=== PATIENT | male | born 1960 | race Caucasian/White ===

== ENCOUNTER 2017-09-05 18:53 | Emergency (ER) | payer OTHER ==
[2017-09-05] MEDS ORDERED: cloNIDine HCL 0.2 MG TAB PO STA (19:24)
--- NOTE | 2017-09-05 19:25 | ED ---
ENT HPI - General Chief complaint: ENT Stated complaint: Foreign body in ear Time Seen by Provider: 09/05/17 19:10 Source: patient, RN notes reviewed Mode of arrival: ambulatory Limitations: no limitations - History of Present Illness Initial comments: This is a 57-year-old male who presents to the emergency department with chief complaint of foreign body in right ear. Patient states that this morning he broke the tip of a Q-tip off in his right ear. Patient states that prior to arrival he presented to an urgent care in [place] and they were unable to remove it. Patient states that he is having some mild pain. On presentation he has an elevated blood pressure. Patient states that he has hypertension and takes lisinopril but that his blood pressure is normally not this high. Denies any symptoms. Denies fever, chills, chest pain, shortness of breath, abdominal pain, nausea or vomiting, constipation or diarrhea, dysuria or hematuria, numbness or tingling, headache or vision changes. - Related Data Allergies Allergy/AdvReac Type Severity Reaction Status Date / Time No Known Allergies Allergy Verified 09/05/17 19:07 Review of Systems ROS Statement: Those systems with pertinent positive or pertinent negative responses have been documented in the HPI. ROS Other: All systems not noted in ROS Statement are negative. Past Medical History Past Medical History: Hypertension History of Any Multi-Drug Resistant Organisms: None Reported Past Surgical History: Back Surgery Past Psychological History: No Psychological Hx Reported Smoking Status: Never smoker Past Alcohol Use History: None Reported Past Drug Use History: None Reported General Exam - General Exam Comments Initial Comments: General: Awake and alert, well-developed; in no apparent distress. HEENT: Head atraumatic, normocephalic. Pupils are equal, round and reactive to light. Extraocular movements intact. Oropharynx moist without erythema or exudate. White foreign body noted in right ear. Upon removal, tympanic membrane is intact and appears normal. No trauma to the external count. Neck: Supple. Normal ROM. Cardiovascular: Regular rate and rhythm. No murmurs, rubs or gallops. Chest symmetrical. Respiratory: Lungs clear to auscultation bilaterally. No wheezes, rales or rhonchi. Normal respiratory effort with no use of accessory muscles. Skin: [place], warm and dry without rashes or lesions. Neurological: Alert and oriented x3. CN II-XII grossly intact. Speech is fluent and answers are appropriate. No focal neuro deficits. Psychiatric: Normal mood and affect. No overt signs of depression or anxiety noted. Limitations: no limitations Course Vital Signs 09/05/17 09/05/17 09/05/17 19:04 19:24 19:48 Temperature 97.8 F Pulse Rate 74 76 Respiratory 16 16 Rate Blood Pressure 221/98 225/112 216/119 O2 Sat by Pulse 98 Oximetry 09/05/17 20:19 Temperature Pulse Rate 64 Respiratory 16 Rate Blood Pressure 181/94 O2 Sat by Pulse Oximetry Procedures - Foreign Body Removal Ear Location: ear canal (R) Foreign Body Suspected: other (qtip) Foreign Body Removed: yes Foreign Body Removal Technique: forceps Tympanic Membrane Intact: Yes Patient Tolerated Procedure: well, no complications Complications: none Medical Decision Making - Medical Decision Making This is a 57-year-old male who presents to the emergency department with chief complaint of foreign body in right ear. Q-tip was removed with forceps on first attempt. TM is intact and there is no trauma to the external canal. On presentation to the emergency department, patient's blood pressure is 212/98. Upon recheck of blood pressure it is 225/112. Given clonidine 0.2 mg. Blood pressure decreased to 181/94 and is stable so patient will be discharged home. Patient is in agreement and voices understanding. All questions were answered. He will follow-up with his primary care provider. Disposition Clinical Impression: Foreign body in ear Disposition: HOME SELF-CARE Condition: Good Instructions: Ear Foreign Body (ED) Additional Instructions: Please follow up with primary care provider within 1-2 days. Return to emergency department if symptoms should worsen or any concerns arise. Referrals: Rohit Carter MD [Primary Care Provider] - 1-2 days Time of Disposition: 19:43
[2017-09-05 23:36] VITALS: BP 181/94; PULSE 64; RESP 16; TEMP 97.8
== END 2017-09-05 20:26 | disposition home or self-care (01) ==
LOC: EC 18:53
DX: T16.1XXA Foreign body in right ear, initial encounter (principal); I10 Essential (primary) hypertension
CPT/HCPCS: 69200; 99282

== ENCOUNTER 2019-02-02 00:29 | Emergency (ER) | payer OTHER ==
--- NOTE | 2019-02-02 00:56 | XR ---
EXAM: XR Right Knee, 3 views CLINICAL HISTORY: ITS.REASON XR Reason: Pain TECHNIQUE: Three views of the right knee. COMPARISON: No relevant prior studies available. FINDINGS: Bones/joints: No acute fracture. No dislocation. Soft tissues: Unremarkable. IMPRESSION: No acute findings.
--- NOTE | 2019-02-02 01:08 | XR ---
EXAM: XR Right Hand Complete, 3 or More Views CLINICAL HISTORY: ITS.REASON XR Reason: Pain TECHNIQUE: Frontal, lateral and oblique views of the right hand. COMPARISON: No relevant prior studies available. FINDINGS: Bones/joints: No acute fracture. No dislocation. Soft tissues: Unremarkable. No radiopaque foreign body. IMPRESSION: No acute findings.
--- NOTE | 2019-02-02 01:08 | XR ---
EXAM: XR Right Wrist Complete, 3 or More Views CLINICAL HISTORY: ITS.REASON XR Reason: Pain TECHNIQUE: Frontal, lateral and oblique views of the right wrist. COMPARISON: No relevant prior studies available. FINDINGS: Bones/joints: No acute fracture. No dislocation. Soft tissues: Unremarkable. No radiopaque foreign body. IMPRESSION: No acute findings.
[2019-02-02] MEDS ORDERED: HYDROcodone/APAP 5-325MG 1 EACH TAB PO STA (01:40)
[2019-02-02] MEDS ORDERED: ONDANSETRON 4 MG ODT STARTER PACK 2 TAB BTL PO STA (01:40)
--- NOTE | 2019-02-02 01:43 | ED ---
General Adult HPI - General Chief complaint: Extremity Injury, Upper Stated complaint: R hand injury Time Seen by Provider: 02/02/19 01:14 Source: patient Limitations: no limitations - History of Present Illness Initial comments: 58-year-old male patient presents to the emergency department today for evaluation of right wrist pain and right knee pain after experiencing a fall. Patient states that he tripped over a cord and fell forward landing on his arm and on the right knee. Patient states he is having significant pain to the wrist. Patient states he was able to ambulate on the knee however did cause him pain as well. Denies any numbness or tingling to the extremities. He denies hitting his head or losing consciousness with this. Denies any neck or back injury. Patient denies any headache, neck pain, back pain, chest pain, shortness of breath, dizziness, weakness, abdominal pain, nausea, vomiting, or difficulties with bowel movements or urination. - Related Data Previous Rx's Medication Instructions Recorded Ibuprofen [Motrin] 600 mg PO Q8HR PRN #30 tab 02/02/19 Allergies Allergy/AdvReac Type Severity Reaction Status Date / Time No Known Allergies Allergy Verified 02/02/19 00:37 Review of Systems ROS Statement: Those systems with pertinent positive or pertinent negative responses have been documented in the HPI. ROS Other: All systems not noted in ROS Statement are negative. Past Medical History Past Medical History: Hypertension History of Any Multi-Drug Resistant Organisms: None Reported Past Surgical History: Back Surgery, Orthopedic Surgery Additional Past Surgical History / Comment(s): left leg FX repair, Past Psychological History: No Psychological Hx Reported Smoking Status: Never smoker Past Alcohol Use History: None Reported Past Drug Use History: None Reported General Exam Limitations: no limitations General appearance: alert, in no apparent distress, other (Physical well- developed, well-nourished adult male patient in no acute distress. Vital signs upon presentation are temperature 99.2F, pulse 91, respirations 18, blood pressure 172/92, pulse ox 96% on room air.) Eye exam: Present: normal appearance, PERRL, EOMI. Absent: scleral icterus, conjunctival injection, periorbital swelling ENT exam: Present: normal exam, normal oropharynx, mucous membranes moist Neck exam: Present: normal inspection, full ROM, other (Nontender, no step-off, no deformity to firm midline palpation of the posterior cervical spine. Full range of motion without pain or limitation.). Absent: tenderness, meningismus, lymphadenopathy Respiratory exam: Present: normal lung sounds bilaterally. Absent: respiratory distress, wheezes, rales, rhonchi, stridor Cardiovascular Exam: Present: regular rate, normal rhythm, normal heart sounds. Absent: systolic murmur, diastolic murmur, rubs, gallop, clicks GI/Abdominal exam: Present: soft, normal bowel sounds. Absent: distended, tenderness, guarding, rebound, rigid Extremities exam: Present: normal inspection, full ROM, tenderness (Skin to the patient exhibits tenderness over the right anterior kneeTenderness over the dorsal, ulnar, and radial aspect of the right wrist. There is anatomical snuffbox tenderness.), normal capillary refill, other (Skin to the right hand and wrist is pink, warm, and dry. Cap refills less than 3 seconds. Radial pulses 2+ and equal bilaterally. Skin to the right lower extremity is pink, warm, and dry. Cap refills less than 3 seconds. Pedal posttibial pulses 2+ and equal bilaterally. There is tenderness over the anterior aspect of the right knee. No laxity or pain noted with valgus or varus maneuvers.). Absent: pedal edema, joint swelling, calf tenderness Back exam: Present: normal inspection, other (Nontender, no step-off, no deformity to firm midline palpation of the thoracic and lumbar vertebrae. Full range of motion without pain or limitation.). Absent: vertebral tenderness Neurological exam: Present: alert, oriented X3, CN II-XII intact Psychiatric exam: Present: normal affect, normal mood Skin exam: Present: warm, dry, intact, normal color. Absent: rash Course Vital Signs 02/02/19 02/02/19 00:34 02:01 Temperature 99.2 F 98.7 F Pulse Rate 91 79 Respiratory 18 16 Rate Blood Pressure 172/92 174/99 O2 Sat by Pulse 96 96 Oximetry Procedures - Orthopedic Splinting/Casting Injury #1 Side: left Upper Extremity Injury Location: short arm, wrist Upper Extremity Immobilizer: thumb spica, Colt wrap Additional Comments: Well-padded with webroll. Neurovascular status intact after splint application. Skin to the fingers is pink, warm, dry. Cap refills less than 3 seconds. Patient denies numbness or tingling to the fingers. Medical Decision Making - Medical Decision Making 58-year-old male patient presented to the emergency department today for evaluation of right wrist and hand pain and right knee pain after experiencing a fall. Physical examination did reveal tenderness over the ulnar and radial aspects of the right wrist with anatomical snuffbox tenderness. Patient said tenderness over the anterior aspect of the right knee. X-rays of the right wrist, hand, and right knee were obtained and showed no acute fractures or dislocations. Patient was splinted in a thumb spica given the anatomical snuffbox tenderness. Neurovascular status intact pre-and post-splint application. We discharged home with prescription for ibuprofen and instructions to rest, ice, elevate the arm. He is instructed to follow-up with chronic specialist for further evaluation. Return parameters were discussed in detail. He verbalizes understanding and agrees with this plan. - Radiology Data Radiology results: report reviewed, image reviewed 3 views of the right wrist are obtained. Report was reviewed in its entirety. Impression by Dr. Pierson shows no acute findings. 3 views of the right hand are obtained. Report was reviewed in its entirety. Impression by Dr. Pierson shows no acute findings. 3 views of the right knee are obtained. Report was reviewed in its entirety. Impression by Dr. Pierson shows no acute findings. Disposition Clinical Impression: Right wrist injury, Contusion of right knee, Right shoulder strain Disposition: HOME SELF-CARE Condition: Good Instructions (If sedation given, give patient instructions): Wrist Injury (ED), Contusion in Adults (ED), Splint Care (ED), Shoulder Sprain (ED) Additional Instructions: Rest, ice, elevate the extremity. Take medications as directed. Follow-up with your primary care physician and chronic specialist for recheck as soon as possible. Return to the emergency department immediately for any new, worsening, or concerning symptoms. Prescriptions: Ibuprofen [Motrin] 600 mg PO Q8HR PRN #30 tab PRN Reason: Pain Is patient prescribed a controlled substance at d/c from ED?: No Referrals: Ranulfo Arellano MD [Medical Doctor] - 1-2 days Time of Disposition: 01:42
[2019-02-02 02:15] VITALS: BP 174/99; PULSE 79; RESP 16; TEMP 98.7
== END 2019-02-02 02:17 | disposition home or self-care (01) ==
LOC: EC 00:29
DX: S46.911A Strain of unspecified muscle, fascia and tendon at shoulder and upper arm level, right arm, initial encounter (principal); S80.01XA Contusion of right knee, initial encounter; S69.91XA Unspecified injury of right wrist, hand and finger(s), initial encounter; W18.09XA Striking against other object with subsequent fall, initial encounter
CPT/HCPCS: 73110; 73130; 73562; 99283; 29125; S0119

== ENCOUNTER → 2022-09-07 | Outpatient (CLI) | payer OTHER ==
--- NOTE | 2022-09-07 15:30 | NM ---
EXAMINATION TYPE: NM bone scan whole body DATE OF EXAM: 09/07/2022 COMPARISON: NONE HISTORY: 62-year-old male C61, prostate cancer TECHNIQUE: Delayed whole-body scanning was performed following the injection of 24.1 mCi Tc 99m MDP. Images acquired 3 hours post injection in multiple projections. FINDINGS: Activity along both sides of the maxilla suggesting periodontal disease. Bladder activity and urine c ontamination is demonstrated. Abnormal focal activity left mid femoral shaft. Some degenerative trace r activity at the knees and bilateral midfoot regions. Possible generalized increased activity throug hout the sternum. IMPRESSION: Suspicious focal activity left mid femoral shaft. Mild diffuse increased activity along t he sternum also noted. Correlate with PSA values.
== END | disposition home or self-care (01) ==
LOC: RADNMMAIN 10:03
PROVIDERS: ATTEND Urology
DX: C61 Malignant neoplasm of prostate (principal)
CPT/HCPCS: 78306; A9503

== ENCOUNTER → 2022-09-11 | Outpatient (CLI) | payer OTHER ==
--- NOTE | 2022-09-12 09:55 | XR ---
EXAMINATION TYPE: XR femur LT DATE OF EXAM: 09/11/2022 COMPARISON: Correlation bone scan 09/07/2022 HISTORY: 62-year-old male C6 1, malignant neoplasm of prostate. TECHNIQUE: 2 views FINDINGS: There is a mixed area of heterogeneous sclerosis and lucency spanning approximately 8.5 cm centered i n the intramedullary space of the femoral mid shaft. No periostitis or osteolysis. No yaritza endosteal scalloping seen. IMPRESSION: Mixed sclerotic and lucent lesion spanning nearly 8.5 cm involving the intramedullary space of the le ft femoral midshaft. The overall density is atypical for osteoblastic prostate metastasis. Consider t he possibility of bone infarct or chondroid lesion. Correlate for any focal pain in this region, PSA levels, and possible further evaluation with CT (to assess for matrix and cortical thinning) and/or M RI.
== END | disposition home or self-care (01) ==
LOC: RADXRMAIN 16:59
PROVIDERS: ATTEND Urology
DX: C61 Malignant neoplasm of prostate (principal); M89.9 Disorder of bone, unspecified

== ENCOUNTER → 2023-01-22 | Outpatient (CLI) | payer OTHER ==
--- NOTE | 2023-01-22 14:27 | XR ---
EXAMINATION TYPE: XR lumbar spine 2 or 3V, XR femur 2 views LT DATE OF EXAM: 01/22/2023 Comparison: Correlation PET/CT 11/01/2022 Clinical History: 62-year-old male M54.10 radicular leg pain Findings: Lumbar spine: Large patient body habitus resulting in underpenetration. 5 lumbar type vertebral bodies. Hypertrophi c facet arthropathy mid to lower lumbar spine. Mild endplate spondylosis lower lumbar spine. Vertebra l body heights are preserved and alignment is maintained. There is a posteriorly displaced fracture at the upper coccygeal segments. Posterior displacement by 6 mm. Left femur: Patchy sclerosis 9.4 cm long by 2.3 cm wide within the intramedullary space of the distal third femor al shaft. No periostitis or osteomyelitis. No endosteal scalloping. No soft tissue calcifications are seen. No acute fracture. Impression: 1. Lumbar spine: Facet arthropathy mid to lower lumbar spine. Mild endplate spondylosis lower lumbar spine. No vertebral compression collapse or malalignment. 2. Lumbar spine: Old tailbone fracture with mild posterior displacement. This was present on the morenita ent's 11/01/2022 PET/CT and showed no activity. 3. Left femur: A 9.4 x 2.3 cm intramedullary lesion within the distal third left femoral shaft charac terized by patchy sclerosis. Possible bone infarct versus chondroid lesion such as enchondroma. If an y localizing pain develops here, further evaluation will be warranted such as with CT to assess for a ny cortical erosion or soft tissue component. Otherwise, a conservative 6-12 month radiographic follo w up can be performed.
== END | disposition home or self-care (01) ==
LOC: RADXRMAIN 13:49
PROVIDERS: ATTEND Surgery Surgical Oncology
DX: M47.26 Other spondylosis with radiculopathy, lumbar region (principal); M79.605 Pain in left leg
CPT/HCPCS: 72100

== ENCOUNTER 2023-07-04 19:41 | Outpatient (CLI) | payer OTHER | END 2023-07-05 04:50 | disposition home or self-care (01) | LOC: 3 N SLEEP 19:41 | PROVIDERS: ATTEND Internal Medicine | DX: G47.33 Obstructive sleep apnea (adult) (pediatric) (principal) | CPT/HCPCS: 95810 ==

== ENCOUNTER → 2023-10-19 | Outpatient (CLI) | payer OTHER ==
[2023-10-20 02:46] LABS: Prostate Specific Antigen 0.02 ng/mL (0.000-4.500); Testosterone 14.9 ng/dL (86.98-780.10)
== END | disposition home or self-care (01) ==
LOC: LABWHC1 16:15
PROVIDERS: ATTEND Radiology Radiation Oncology
DX: C61 Malignant neoplasm of prostate (principal); Z80.42 Family history of malignant neoplasm of prostate
CPT/HCPCS: 36415; 84153; 84403

== ENCOUNTER → 2024-12-10 | Outpatient (CLI) | payer OTHER ==
[2024-12-10 15:46] LABS: Prostate Specific Antigen <0.01 ng/mL (0.000-4.500)
== END | disposition home or self-care (01) ==
LOC: LABWHC1 09:02
PROVIDERS: ATTEND Radiology Radiation Oncology
DX: C61 Malignant neoplasm of prostate (principal); Z80.42 Family history of malignant neoplasm of prostate
CPT/HCPCS: 36415; 84153; 84403